=== PATIENT | male | born 1960 | race Native Hawaiian/Other Pacific Islander ===

== ENCOUNTER 2018-08-29 22:18 | Emergency (ER) | payer OTHER ==
[~2018-08-29] VITALS: Ht 185.4 cm; Wt 90.7 kg
[2018-08-29 22:18] VITALS: BP 131/70; TEMP 98.6
[2018-08-30 00:25] LABS: PLATELET COUNT 171 K/uL (142-355)
[2018-08-30 00:30] LABS: POTASSIUM 4.3 mmol/L (3.6-5.2)
[2018-08-30] MEDS ORDERED: PERCOCET1 TA3 PO (04:06)
[2018-08-30] MEDS ORDERED: OMEPRAZOLE40 MG PO (04:08)
[2018-08-30] MEDS ORDERED: DIAZ5TAB20 PO (04:09)
[2018-08-30] MEDS ORDERED: METOPROLOL SUCC1 TA1 PO (04:10)
[2018-08-30] MEDS ORDERED: DOCU SOFT100 MG PO (04:11)
[2018-08-30] MEDS ORDERED: POLY GLYCOL3350 M1 PO (04:12)
[2018-08-30] MEDS ORDERED: SOMA350 MG PO (04:12)
[2018-08-30] MEDS ORDERED: BREO ELLIPTA 201 INH INH (04:13)
[2018-08-30] MEDS ORDERED: ALBUTEROL1.25 MG/3 INH (04:14)
[2018-08-30] MEDS ORDERED: ESCITALOPRAM20 MG PO (04:15)
[2018-08-30] MEDS ORDERED: METH10TA2 PO (04:15)
[2018-08-30] MEDS ORDERED: DIAZEPAM10 M2 PO (04:16)
== END 2018-08-30 02:45 | disposition other institution (70) ==
LOC: ED 22:18
PROVIDERS: Internal Medicine
DX: R46.89 Other symptoms and signs involving appearance and behavior (principal); R41.82 Altered mental status, unspecified; G89.29 Other chronic pain; I10 Essential (primary) hypertension; Z04.6 Encounter for general psychiatric examination, requested by authority
CPT/HCPCS: 36415; 80053; 81000; 85027; 93005; 99285